=== PATIENT | male | born 1965 | race Caucasian/White ===

== ENCOUNTER 2018-05-31 05:54 | Inpatient (IN) ==
[2018-05-31] MEDS ORDERED: Levofloxacin 500 MG/100 ML 500 MG/100 ML BAG IVPB ONE (06:18)
[2018-05-31] MEDS ORDERED: Albuterol 2.5 MG/3 ML NEBULIZER IH ONE ×2 (06:18→09:00)
[2018-05-31] MEDS ORDERED: Ringers Solution, Lactated 1,000 ML IVC SCH (06:30)
[2018-05-31] MEDS ORDERED: *HR* FentaNYL (PF) 100 MCG/2 ML VIAL ONE ×3 (06:53→11:27)
[2018-05-31] MEDS ORDERED: Lidocaine -MPF 2% 2 ML VIAL ONE (06:54)
[2018-05-31] MEDS ORDERED: *HR* Midazolam HCl 2 MG/2 ML VIAL ONE ×2 (06:54→08:07)
[2018-05-31] MEDS ORDERED: *HR* Propofol 200 MG/20 ML VIAL IVP ONE (06:54)
[2018-05-31] MEDS ORDERED: Dexamethasone 4 MG/ML VIAL ONE (06:54)
[2018-05-31] MEDS ORDERED: Ondansetron 4 MG/2 ML VIAL ONE ×2 (06:54→12:22)
[2018-05-31] MEDS ORDERED: *HR* Rocuronium Bromide 50 MG/5 ML VIAL ONE (06:54)
[2018-05-31] MEDS ORDERED: Famotidine 20 MG/2 ML VIAL IVP ONE (07:04)
[2018-05-31] MEDS ORDERED: Acetaminophen IV 1,000 MG/100 ML INFUS..BTL IVPB ONE (07:04)
[2018-05-31] MEDS ORDERED: Pregabalin 75 MG CAPSULE PO ONE (07:04)
[2018-05-31] MEDS ORDERED: LIDOCAINE 1% PF 2 ML AMPUL ONE ×2 (07:06→07:13)
--- NOTE | 2018-05-31 07:09 | Anesthesia Evaluation PreOp ---
Date of Encounter: 05/31/18 Time of Encounter: 07:00 - Past History Planned Operation: Robotic L-partial nephrectomy Cardiac History: HTN, Hyperlipidemia, Other ("Clean Cath earlier this year") Pulmonary History: Former smoker (quit 2018 "couple months ago") BUTTON BRADDER History: Denies Any Significant HX Other Medical History: Renal (New masses x 2), Diabetes Type II, GERD Anesthesia History: No Prior Anesthetic Complications, Past Anesthesia (L-arm, Appy 1999, Heart cath 2017), (NO FamHx of ) Alcohol Use: heavy, recent Drug use: none Medications and Allergies Acetaminophen [Tylenol] 650 mg PO Q6HR PRN 05/31/18 [History] Carvedilol [Coreg] 25 mg PO BID 05/31/18 [History] Cholecalciferol (D-3) [Vitamin D] 2,000 unit PO DAILY 05/31/18 [History] Lisinopril-HCTZ 10-12.5 [Prinzide 10-12.5] 1 tab PO DAILY 05/31/18 [History] Pantoprazole Sodium [Protonix] 40 mg PO BID 05/31/18 [History] Simvastatin [Zocor] 20 mg PO HS 05/31/18 [History] metFORMIN [Glucophage] 500 mg PO 0800 05/31/18 [History] 3 Allergy/AdvReac Type Severity Reaction Status Date / Time Penicillins Allergy Hives Unverified 05/31/18 06:36 morphine AdvReac Palpitation Unverified 05/31/18 06:36 s - Meds/Allergy Pre-op Review Medications Reviewed: Yes Allergies Reviewed: Yes Beta Blockers on Current Med List: Yes (Carvedilol) If Beta Blockers taken, Date/Time (Last Dose taken): 05/31/2018 @ 0300 Anesthesia Results - Labs Laboratory Tests 05/19/18 05/19/18 05/19/18 10:55 10:55 10:55 WBC 11.9 H Hgb 15.7 Hct 47.3 Plt Count 247 PT 11.0 INR 1.0 APTT 33.2 Sodium 138 Potassium 3.9 Chloride 103 Carbon Dioxide 22 L BUN 14 Creatinine 0.87 Est GFR (Non-Af Amer) > 60 Est Mean Plasma Glucose Hemoglobin A1c 05/19/18 10:55 WBC Hgb Hct Plt Count PT INR APTT Sodium Potassium Chloride Carbon Dioxide BUN Creatinine Est GFR (Non-Af Amer) Est Mean Plasma Glucose 143 Hemoglobin A1c 6.6 H - Imaging EKG: image reviewed (ekg dated 05/19/2018 74bpm- SINUS RHYTHM MARKED LEFT AXIS DEVIATION VOLTAGE CRITERIA FOR LVH POSSIBLE SEPTAL MYOCARDIAL INFARCTION, OF INDETERMINATE AGE Electronically Signed On 05-20-2018 8 :54:11 EDT by Joaquin Colin) Anesthesia Exam O2 Sat Height 1.73 m Height 1.73 m Height 1.73 m Weight 78.018 kg Weight 78.018 kg Weight 78.018 kg O2 Sat by Pulse Oximetry 97 O2 Sat by Pulse Oximetry 97 Vital Signs Temp Pulse Resp BP Pulse Ox 98.5 F 74 18 133/87 97 05/31/18 06:27 05/31/18 06:27 05/31/18 06:27 05/31/18 06:27 05/31/18 06:27 Height: 5'10" Weight: 172# NPO (# of Hours): MNoc - HEENT Pupil (Motor): Pupils equal, EOMI Mallampati: III (GLIDESCOPE recommended) Teeth: Poor dentition Oral Opening: Less than or equal to 3 - BUTTON BRADDER LOC: Oriented BUTTON BRADDER Motor: Normal RUE, Normal LUE, Normal RLE, Normal LLE, Normal Face BUTTON BRADDER Sensory: Normal: RUE, LUE, RLE, LLE, Face - Cardiac Murmur: None - Pulmonary Breath Sounds: bilateral Clear Respiratory Effort: Symmetrical Anesthesia Assess/Plan ASA Score: 3 (HTN, Chol, DM, REnal masses) Modified Flint Scale for Level of Consciousness: Cooperative, oriented, and tranquil Anesthetic Plan: General Monitoring Plan: Standard Monitors Recovery Plan: PACU Anes Supervising Prov Stmt: Pt seen/evaluated, R&B discussed, questions answered and cosnent obtained. Mima Jules MD
[2018-05-31] MEDS ORDERED: Bupivacaine-MPF 0.25% 10 ML VIAL ONE (07:15)
[2018-05-31] MEDS ORDERED: ROPIVACAINE HCL/PF 0.5% 30 ML VIAL ONE (07:23)
--- NOTE | 2018-05-31 07:30 | History & Physical Report ---
Date of Encounter: 05/31/18 Time of Encounter: 07:29 24 Hour HP Update - Instructions Instructions: If the History and Physical is less than 30 days old and was completed prior to A.M. admission and or procedure and has NOT been updated on calendar day of procedure please complete this update prior to performing procedure. - Update Patient reports changes in Medical Condition: No Changes in examination, assessment, or condition: No Changes in Medication: No Preop tests/diagnostics Reviewed: Yes Surgery Remains Indicated: Yes Consent for Planned Operative Procedure(s) Verified: Yes - Pre-Operative Checklist Preoperative Checklist Indicated: Yes Prophylactic Antibiotic Ordered: Yes Home Medications Include Beta Robert: Yes Beta Robert Taken Today (Day of Surgery): Yes Is VTE Prophylaxis Indicated?: Yes
[2018-05-31] MEDS ORDERED: Mannitol 25% vial 12.5 GM/50 ML VIAL ONE (08:40)
--- NOTE | 2018-05-31 08:59 | Anesthesia Procedures ---
Date of Encounter: 05/31/18 Time of Encounter: 08:00 Procedures: Anesthesia - Nerve Block Procedure Date: 05/31/18 Time: 07:50 Allergies/Adv Reactions: Penicillins Allergy (Unverified 05/31/18 06:36) Hives morphine Adverse Reaction (Unverified 05/31/18 06:36) Palpitations Pre-op Diagnosis: left renal mass Surgical Procedure: left robotic partial nephrectomy Checklist: Correct Patient Identifier, Correct procedure, History checked Correct side: Left Monitor Applied: BP, Pulse Oximetry Sedation: Versed (mg): 4 Sedation: Fentanyl (mcg): 125 Indication: Post Op Analgesia Pre-op Neuro Deficits: No Block Type: Other (erector spinae block) Catheter placed: No Sterile Technique: Yes Ultrasound used: Yes Anatomy identified: Yes Visual spread of Local: Yes Blood on Needle Aspiration: No Smooth Injection of Local: Yes Pain with Injection of Local: Yes Prep: Chlorhexadine Needle: 21 x 100 mm Stimuplex Local: Ropivacaine (0.25%) Volume (cc): 30 Number of Attempts: 2 (first attempt per Erasmo ROGER Dr, Jaruwannakorn performed successful block) Complications: None/effective block Vitals: see anesthesia record
[2018-05-31] MEDS ORDERED: *HR* Promethazine 25 MG/ML VIAL IVP PRN (09:00)
[2018-05-31] MEDS ORDERED: *HR* HYDROmorphone 2 MG TABLET PO PRN (09:00)
[2018-05-31] MEDS ORDERED: *HR* Metoprolol 5 MG/5 ML VIAL IVP ONE (09:02)
[2018-05-31] MEDS ORDERED: *HR* Labetalol 20 MG/4 ML SYRINGE IVP PRN (09:03)
[2018-05-31] MEDS ORDERED: *HR* HYDROmorphone 2 MG/ML SYRINGE ONE (10:26)
[2018-05-31] MEDS ORDERED: Neostigmine Methylsulfate 3 MG/3 ML SYRINGE ONE (11:16)
--- NOTE | 2018-05-31 12:48 | Operative Note ---
Date of procedure: 05/31/18 Pre-op diagnosis: Left renal masses Post-op diagnosis: same Procedure: Left robotic partial nephrectomy Implants: 19-[place]er Nadeem drain Campa catheter Complications: None Anesthesia: GETA Surgeon: Harpreet Coyne Was there an dental chairside assistant present: Yes Landscaping Crew Leader: Jassi Boyce Landscaping Crew Leader Other: Destiny Higuera Estimated blood loss (cc): 100 Specimen: left renal masses Condition: stable Disposition: PACU Procedure in Detail: Indications: Micah is a 52-year-old man who presents with two left renal masses. HHe elected to undergo a left robotic partial nephrectomy. He was informed of the risks of the procedure which include but are not limited to bleeding, infection, injury to other structures, need for further procedures, urine leak, bowel injury, need for complete nephrectomy, need for open conversion, and the risk of anesthesia. He is willing to proceed. Procedure After informed consent was obtained the patient was brought back to the operating room and placed in the supine position. A timeout was performed. Gen. anesthesia was then administered and an endotracheal tube was placed. Appropriate IV access was obtained. A Campa catheter was then placed. He was then placed in the flank position. His left side was up. All pressure points were padded. He was well secured to the table. He was then prepped and draped in the usual sterile fashion. Incisions 4 were marked along the lateral aspect of the rectus abdominis muscle. An 8 millimeter incision was made superior and lateral to the umbilicus. The Veress needle was introduced. 2 clicks were heard. It passed the water drop test. Insufflation was then initiated. Pressures were low consecutively. The abdomen was insufflated. Once the pressure was up to 15, we inserted the 8 mm robotic port. Entry was obtained into the abdomen. The bowel was surveyed below and there is no evidence of bowel injury. Robotic ports were then inserted x 3 along the lateral rectus border. A 12 mm port was placed for the dental chairside assistant inferior to the umbilicus. The robot was docked. The air seal was initiated. The bowel was reflected off the kidney along the white line of Toldt. There was a mild amount of splenic mobilization. As the bowel was reflected medially I identified the gonadal vein. This was traced superior to the level of the renal vein. The renal vein was dissected out. The gonadal vein was identified. The renal artery was identified behind the renal vein. There was an early branch of the renal artery. There was an anterior and posterior branch. Both of these were dissected out. The ultrasound was placed into the abdomen. I was able to identify the 2 renal masses which were located right next to each other along the lateral and posterior aspect of the kidney. The fat on top of the kidney was dissected off using a left cautery to expose the locations of the renal tumor. The masses were scored out using cautery with the assistance of the ultrasound. The 2 masses right were next to each other. The site of the resection was an oval around both masses. I utilized a small amount of ICG to identify the normal parenchyma. Mannitol was then given. The renal arteries were clamped using the bulldogs. The tumor was excised sharply using cold scissors. Once the tumor was removed I utilized a 3-O V-LOC to close the deeper vessels in a running fashion. Hemostasis was then achieved along these vessels. I then closed the capsule to itself using 0 V melonie suture in an interrupted fashion with the sliding clip renorrhaphy technique. Hemostasis was good. The bulldog clamp was removed. There was an area of bleeding and I placed an 0 Vicryl suture across which improved hemostasis. 28 minutes of warm ischemia time was noted. FloSeal was applied to the resection area. Hemostasis seemed adequate. The Gerota's fascia was closed back over top of the kidney using a 2-0 Vicryl suture. The specimen was removed in a specimen bag. The specimen was extracted through the assistance port after opening the skin and fascia slightly with electrocautery. A 19 [place] Nadeem drain was then placed. All the ports were then removed. The fascia of the extraction site was closed in a running fashion using an 0 Vicryl suture. The wounds were closed using 4-0 Monocryl suture. The drain was secured to the skin using a Prolene suture. Local anesthetic was infiltrated into the wounds. The abdomen was then washed and dried and Dermabond was applied to the wounds. The patient was then awakened from general anesthesia and brought to recovery room in good condition. All sponge, needle, and instrument counts were correct.
[2018-05-31] MEDS: *HR* HYDROmorphone (PF) 1 MG/ML SYRINGE IVP PRN ×2 (12:52→13:16)
--- NOTE | 2018-05-31 13:27 | Anesthesia Evaluation Post Op ---
Date of Encounter: 05/31/18 Time of Encounter: 13:26 - Vital Signs Vital Signs: Vital Signs/O2 Sat, Most Current Temp Pulse Resp BP Pulse Ox 98.4 F 103 15 143/98 96 05/31/18 12:52 05/31/18 12:52 05/31/18 12:52 05/31/18 12:52 05/31/18 12:52 - Lungs Lungs: Clear Ascult./Percussion - Airway Airway: Non-obstructed - Cardiovascular Regular Rate - Mental Status Mental Status: Alert & Oriented, Answers Appropriately - Pain Pain Scale: 0 Pain Scale used: Numeric (1 - 10) - Nausea Vomiting Nausea Vomiting: Not Present - Hydration Hydration: Campa catheter - Discharge PostOp Status: Transfer Patient to floor
[2018-05-31] MEDS ORDERED: OXYCODONE Oral CONC 10 MG/0.5 ML ORAL.SYG SL PRN (13:56)
[2018-05-31] MEDS ORDERED: Acetaminophen 325 MG TABLET PO PRN (13:56)
[2018-05-31] MEDS ORDERED: Dextrose Gel 15 GM/37.5 ML TUBE PO PRN ×2 (13:56)
[2018-05-31] MEDS ORDERED: *HR* Dextrose 50 % in Water (Syg) 50 ML SYRINGE IVP PRN (13:56)
[2018-05-31] MEDS ORDERED: Famotidine 20 MG TABLET PO PRN (13:56)
[2018-05-31] MEDS ORDERED: Naloxone 0.4 MG/ML INJ IVP PRN (13:56)
[2018-05-31] MEDS ORDERED: D5% in Water 1,000 ML IVC PRN (13:56)
[2018-05-31] MEDS ORDERED: Ondansetron 4 MG/2 ML VIAL IVP PRN (13:56)
[2018-05-31] MEDS: 0.9 % Sodium Chloride 1,000 ML IVC SCH ×2 (14:48→22:57)
[2018-05-31] MEDS: Insulin LISPRO 300 UNITS/3 ML VIAL SQ SCH (19:21)
[2018-05-31] MEDS: *HR* Heparin 5,000 UNIT/ML VIAL SQ SCH (19:28)
[2018-05-31] MEDS ORDERED: Temazepam 15 MG CAPSULE PO PRN (21:00)
[2018-06-01] MEDS: *HR* OxyCODONE Immed Rel 5 MG TABLET PO PRN ×3 (00:59→15:48)
[2018-06-01 01:46] LABS: Basophils % 0.1 %; Hematocrit 39.1 % (37.5-50.1); Immature Granulocytes % 0.4 % (0-4); Lymphocytes # 0.8 K/mcL (0.6-4.6); Mean Corpuscular HGB Conc 33.2 g/dL (31.6-35.5); Mean Corpuscular Hemoglobin 31.8 pg (28.0-33.3); Mean Corpuscular Volume 95.6 fL (83.0-100.0); Mean Platelet Volume 10.2 fL (9.4-12.4); Monocytes # 1.1 K/mcL (0.0-1.3); Monocytes % 9.2 %; Neutrophils # 9.7 K/mcL (1.6-8.9); Platelet Count 201 K/mcL (140-400); Red Blood Count 4.09 M/mcL (4.19-5.50); Red Cell Distribution Width 12.5 % (11.5-14.5); Segmented Neutrophils % 83.3 %
[2018-06-01 01:57] LABS: BUN/Creatinine Ratio 14 (6-26); Blood Urea Nitrogen 15 mg/dL (6-20); Calcium 8.4 mg/dL (8.6-10.3); Carbon Dioxide 19 mEq/L (23-29); Chloride 107 mEq/L (98-107); Glucose 182 mg/dL (70-105); Osmolality,Calculated 289 (280-300); Sodium 137 mEq/L (136-145); eGFR For Non-African Americans > 60 (> 60)
[2018-06-01] MEDS: *HR* Heparin 5,000 UNIT/ML VIAL SQ SCH ×2 (06:19→17:08)
[2018-06-01] MEDS: 0.9 % Sodium Chloride 1,000 ML IVC SCH (06:50)
[2018-06-01] MEDS: Insulin LISPRO 300 UNITS/3 ML VIAL SQ SCH ×3 (07:57→17:07)
--- NOTE | 2018-06-01 08:17 | Urology Progress Note ---
Date of Encounter: 06/01/18 Time of Encounter: 08:00 - Assessment and Plan (1) Renal mass, left Current Visit: Yes Status: Acute Assessment and plan: Patient is a 52-year-old male who presents one day postoperatively from left robotic partial nephrectomy for two renal masses. Patient is recovering well, and vital signs are stable and afebrile. Plan to advance diet around lunchtime. Encouraged oral hydration and ambulation. We will monitor urine output and reevaluate patient. Progress Note Subjective: no new complaints Narrative: POD #1. Patient is a 52-year-old male who presents one day postoperatively from left robotic partial nephrectomy. Patient seen and examined sitting upright in chair in no apparent distress. Nurse at bedside. Campa catheter was just removed without difficulty by nurse. Patient has not voided yet. Patient is tolerating full liquids. Patient denies significant pain, chest pain, dyspnea, calf pain. Objective Initial Vital Signs Temp Pulse Resp BP Pulse Ox 98.5 F 74 18 133/87 97 05/31/18 06:27 05/31/18 06:27 05/31/18 06:27 05/31/18 06:27 05/31/18 06:27 - General physical appearance Present: well developed, no distress, no pain - Respiratory Present: normal expansion, normal respiratory effort - Abdomen Present: soft, non tender, wound (Primary incision sites are clean, dry, intact ; FLORIAN drain secured with 15 mL bloody serosanguineous output). Absent: distended - Genitourinary Present: normal penis with no external lesions - Integumentary Present: no rash, no abnormal pigmentation - Musculoskeletal Present: normal posture - Psychiatric Present: oriented to time, oriented to person, oriented to place, speech is normal, memory intact - Labs 06/01/18 01:18 06/01/18 01:18 Diabetes panel 06/01/18 Range/Units 01:18 Sodium 137 (136-145) mEq/L Potassium 4.0 (3.5-5.1) mEq/L Chloride 107 (98-107) mEq/L Carbon Dioxide 19 L (23-29) mEq/L BUN 15 (6-20) mg/dL Creatinine 1.04 (0.70-1.30) mg/dL Glucose 182 H (70-105) mg/dL Calcium 8.4 L (8.6-10.3) mg/dL Calcium panel 06/01/18 Range/Units 01:18 Calcium 8.4 L (8.6-10.3) mg/dL Pituitary panel 06/01/18 Range/Units 01:18 Sodium 137 (136-145) mEq/L Potassium 4.0 (3.5-5.1) mEq/L Chloride 107 (98-107) mEq/L Carbon Dioxide 19 L (23-29) mEq/L BUN 15 (6-20) mg/dL Creatinine 1.04 (0.70-1.30) mg/dL Glucose 182 H (70-105) mg/dL Calcium 8.4 L (8.6-10.3) mg/dL Adrenal panel 06/01/18 Range/Units 01:18 Sodium 137 (136-145) mEq/L Potassium 4.0 (3.5-5.1) mEq/L Chloride 107 (98-107) mEq/L Carbon Dioxide 19 L (23-29) mEq/L BUN 15 (6-20) mg/dL Creatinine 1.04 (0.70-1.30) mg/dL Glucose 182 H (70-105) mg/dL Calcium 8.4 L (8.6-10.3) mg/dL Consult Discharge Plan - Plan Referrals: Sally Infante [Primary Care Provider] -
[2018-06-02] MEDS: *HR* OxyCODONE Immed Rel 5 MG TABLET PO PRN (01:33)
[2018-06-02] MEDS: *HR* Heparin 5,000 UNIT/ML VIAL SQ SCH (05:38)
[2018-06-02 06:45] VITALS: BP 147/87
[2018-06-02] MEDS: Insulin LISPRO 300 UNITS/3 ML VIAL SQ SCH (07:51)
--- NOTE | 2018-06-02 07:52 | Discharge Summary ---
<Destiny Higuera N - Last Filed: 06/02/18 08:03> Orders not resulted at time of discharge: Pending orders 05/19/18 08:20 Red Blood Cells [BBK] Routine 05/31/18 07:38 US anesthesia pain block [US] Stat Date of Encounter: 06/02/18 Time of Encounter: 07:54 - Discharge Diagnosis (1) Renal mass, left Priority: Primary Status: Acute (2) Renal malignant neoplasm Priority: Primary Status: Acute Qualifiers: Laterality: left Qualified Code(s): C64.2 - Malignant neoplasm of left kidney, except renal pelvis - Hospital Course Hospital course: Mr. Singer is a 52 year old male who presents with a history of two left renal masses. On 05/31/18, patient was taken to the operating room where he underwent a robotic assisted left partial nephrectomy. There were no surgical complications, and the patient tolerated the procedure well. Postoperative course was relatively unremarkable, and he was dismissed in satisfactory condition. On postoperative day 1, the Campa catheter was removed without difficulty, and patient voided without difficulty. On postoperative day 2, the FLORIAN drain was removed without difficulty, and patient tolerated well. On postoperative day 2, Dr. Coyne reviewed pathology findings with the patient. Postoperative expectations, restrictions, activity and follow-up were discussed with patient, and he verbalized understanding. Time spent discussing smoking cessation with patient: 3 to 10 minutes - Time Spent with Patient Total time spent providing and/or coordinating discharge services: Less than 30 minutes Procedures and tests throughout hospitalization: Left robotic partial nephrectomy Labs on day of discharge: Labs from last 24 hours 06/01/18 06/01/18 11:29 07:34 POC Glucose 146 H 161 H - Discharge Medications Prescriptions: Docusate [Colace] 100 mg PO BID #60 capsule Oxycodone HCl/Acetaminophen [Percocet 5-325 mg Tablet] 1 each PO Q6H PRN 5 Days #20 tablet PRN Reason: Severe Pain Home Medications: Acetaminophen [Tylenol] 650 mg PO Q6HR PRN 05/31/18 [History] Carvedilol [Coreg] 25 mg PO BID 05/31/18 [History] Cholecalciferol (D-3) [Vitamin D] 2,000 unit PO DAILY 05/31/18 [History] Lisinopril-HCTZ 10-12.5 [Prinzide 10-12.5] 1 tab PO DAILY 05/31/18 [History] Pantoprazole Sodium [Protonix] 40 mg PO BID 05/31/18 [History] Simvastatin [Zocor] 20 mg PO HS 05/31/18 [History] metFORMIN [Glucophage] 500 mg PO 0800 05/31/18 [History] Docusate [Colace] 100 mg PO BID #60 capsule 06/02/18 [Rx] Oxycodone HCl/Acetaminophen [Percocet 5-325 mg Tablet] 1 each PO Q6H PRN 5 Days #20 tablet 06/02/18 [Rx] Allergies/Adverse Reactions: 3 Allergy/AdvReac Type Severity Reaction Status Date / Time Penicillins Allergy Hives Unverified 05/31/18 06:36 morphine AdvReac Palpitation Unverified 05/31/18 06:36 s Date of admission: 05/31/18 13:51 Primary care physician: Sally Infante Consults: 06/01/18 07:25 Consult to Physical Therapy [CONS] Routine Comment: Evaluate, develop and implement POC Reason for Consult: Assist with ambulation Does patient have active BEDREST order?: No Is patient medically & hemodynamically stable?: Yes Patient assessed for mobility or mobilized this visit?: No Discharging clinician: Destiny Higuera Anticipated date of discharge: 06/02/18 Exam Initial Vital Signs Temp Pulse Resp BP Pulse Ox 98.5 F 74 18 133/87 97 05/31/18 06:27 05/31/18 06:27 05/31/18 06:27 05/31/18 06:27 05/31/18 06:27 - General physical appearance Present: well developed, no distress, no pain - Eyes Present: PERRL, normal ocular movement - ENT Present: normal nares, no hearing loss, no congestion - Neck Present: no masses, trachea midline - Respiratory Present: normal respiratory effort - Cardiovascular Cardiovascular exam IM: RRR - Abdomen Abdomen: Present: soft, non tender, wound (primary incision sites clean, dry, intact ). Absent: distended - Integumentary Present: no rash, no abnormal pigmentation - Neurologic Present: normal coordination - Musculoskeletal Present: other (normal posture ) - Patient Status Disposition: Home, Self-Care Condition: Good Functional capacity at discharge: independent ambulation Overall status at discharge: patient is progressing back to baseline - Discharge Instructions Follow Up With: Harpreet Coyne MD [Partnered Physician] - (Office will call patient at home with date and time of appointment. Thank you) Sally Infante [Primary Care Provider] - Additional Instructions: Call if fever greater than 101 degrees. Call if incision sites are red, warm, or begin to drain excessively. Okay to shower. No tub baths, swimming, or hot tubs. No lifting greater than 20 pounds or heavy activity. Okay to drive as long as you are no longer taking narcotic pain medicine. 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 Singer is a 52 year old male - Time Spent with Patient Total time spent providing and/or coordinating discharge services: Labs on day of discharge: Labs from last 24 hours 06/01/18 06/01/18 06/01/18 17:04 11:29 07:34 POC Glucose 163 H 146 H 161 H Date of admission: 05/31/18 13:51 Primary care physician: Sally Infante Consults: 06/01/18 07:25 Consult to Physical Therapy [CONS] Routine Comment: Evaluate, develop and implement POC Reason for Consult: Assist with ambulation Does patient have active BEDREST order?: No Is patient medically & hemodynamically stable?: Yes Patient assessed for mobility or mobilized this visit?: No Exam Initial Vital Signs Temp Pulse Resp BP Pulse Ox 98.5 F 74 18 133/87 97 05/31/18 06:27 05/31/18 06:27 05/31/18 06:27 05/31/18 06:27 05/31/18 06:27 - Attending Attestation Patient seen and examined with the physician's operator/assistant foreman. I agree with her assessment and plan. We reviewed the pathology which did show a type I papillary cancer. He will follow-up in 2 weeks for wound check. We discussed indications of a focal positive margin.
== END 2018-06-02 10:01 | disposition home or self-care (01) | DRG 658 ==
LOC: SAMDAY 05:54 → 3ANU 13:51
PROVIDERS: ADMIT Urology; ATTEND Urology